=== PATIENT | female | born 1985 | race Caucasian/White ===

== ENCOUNTER → 2016-08-16 | Outpatient (CLI) | payer BC ==
[~2016-08-16] MED LIST: PEDICHW53; ZNTT/150 PO
--- NOTE | 2016-08-16 15:50 | MAMMOGRAPHY REPORT ---
ULTRASOUND OF RIGHT BREAST: 08/16/2016 CLINICAL HISTORY: The patient reports intermittent nonfocal right breast tenderness/aching for appro ximately 3-4 weeks. She had a history of right breast mastitis 4 months ago and has ceased breast-f eeding for 4 months. She also reports that her physician felt a possible lump in the right breast d uring a routine clinical exam. She denies any current breast erythema. Family history of breast can cer in her mother. COMPARISON: No prior exams were available for comparison. TECHNIQUE: Real-time ultrasound of the right breast was performed. FINDINGS: Real-time, high resolution was performed of the of the right breast including all 4 quadrants and priec bareolar region. Ultrasound was also performed of the area of the palpable lump pointed out by the patient, in the right breast at 12:00, approximately 2 cm from the nipple. Sonographically normal t issue is seen at the site of the palpable lump, without evidence of a cyst or solid mass. In the ri ght breast at 8:30, 6 cm from the nipple, there is an oval isoechoic circumscribed mass which measur es 4 x 3 x 5 mm. This is incidentally noted and may represent a fibroadenoma although is indetermin ant; the options of short interval follow-up versus biopsy were discussed with the patient, and at t his time we will opt for biopsy. The remainder of the right breast demonstrates no suspicious flash s or other suspicious sonographic abnormalities. IMPRESSION: ACR BI-RADS CATEGORY 4A: LOW SUSPICION FOR MALIGNANCY - FOLLOW-UP RECOMMENDED 1. No suspicious sonographic abnormality at the site of the palpable right 12:00 breast lump pointe d out by the patient. No etiology for right breast tenderness evident. Recommend clinical follow-u p. 2. Incidentally noted isoechoic circumscribed 5 mm mass in the right breast at 8:30. The mass may represent a fibroadenoma although is indeterminate and ultrasound guided core needle biopsy is recom mended for further evaluation. A phone call was made to the physician's office to confirm faxed results were received. The patient was verbally notified of the results. She tentatively scheduled the biopsy before leaving the depa rtment. Beatriz Cheney M.D. /:08/16/2016 13:40:24 All Around Gear Machine Operator: Beatriz Cheney MD, [facility] letter sent: Abnormal 4/5 BI-RADS Code: ACR BI-RADS Category 4A: Low Suspicion For Malignancy
== END | disposition home or self-care (01) ==
LOC: C.MAMM 13:08
PROVIDERS: ATTEND Obstetrics & Gynecology
DX: N63 Unspecified lump in breast (principal); N64.4 Mastodynia

== ENCOUNTER → 2016-08-28 | Outpatient (CLI) | payer BC ==
--- NOTE | 2016-08-28 12:05 | Discharge Instructions ---
Discharge Instructions Procedure Procedure Date: August 28, 2016. Reason for visit: Right Mass. Discharge Discharge Date: August 28, 2016. Discharge Diagnosis: post right breast ultrasound guided core biopsy Instructions Activity Recommendations: Additional Limitations (see below) Return to School/Work: no limitations Recommended Home Diet: No Limitations Provider Instructions: ACTIVITY RECOMMENDATIONS: * No lifting, pushing, pulling or exercising the affected side for three days. RETURN TO SCHOOL/WORK: * You may return to work/school after the procedure, but do not perform any strenuous activities for 24 to 48 hours. MEDICATIONS: * Tylenol (two 325 mg) every four to six hours if needed for mild pain (if not allergic to Tylenol). DIET: * Resume previous diet. SPECIAL CARE INSTRUCTIONS: * Keep biopsy site dry for 24 hours. May shower after 24 hours, but do not soak (bathe) incision. * May remove Tegaderm (plastic patch) tomorrow AFTER showering. * Leave the steri-strips on for one week. Allow the steri-strips to fall off by themselves. If not off after one week, you may remove them. You may place a Bandaid crosswise over the strips, if desired. * Apply ice 10 minutes on and 10 minutes off as needed. * Wear a bra at bedtime to sleep more comfortably for 2-3 days. * Your referring physician should have the results after approximately 5 to 7 business days. * Call for unusual bleeding, fever, drainage, etc or if you have any questions call [phone] during normal business hours or after hours call Dr Luke, . FOLLOW UP VISIT: Follow-up with Referring Physician as scheduled. Allergies Coded Allergies: No Known Allergies (Unverified , 07/29/15) Norah Bueno Recommendations: Call your doctor if: * Temperature above 101 degrees * Pain not relieved by pain medicine ordered * There is increased drainage or redness from any incision * You have any unanswered questions or concerns. Your Doctors Instructions noted above were prepared by provider Tayler Luke. Patient Signature Section: Patient Instructions Signature Page Perla Andujar Patient (or Guardian) Signature/Date: I have read and understand the instructions given to me by my caregivers. Caregiver/RN/Doctor Signature/Date: The above-named patient and/or guardian has received patient instructions on this date. + Original Patient Signature Page (only) stays with chart. Please make copy for patient.
--- NOTE | 2016-08-28 14:45 | MAMMOGRAPHY REPORT ---
ULTRASOUND GUIDED BIOPSY RIGHT BREAST: 08/28/2016 CLINICAL HISTORY: Indeterminate isoechoic 4.7 mm mass in the 8:30 right breast incidentally identifi ed on ultrasound. Patient presents for ultrasound-guided core needle biopsy. COMPARISON: Comparison is made to exam dated: 08/16/2016 ultrasound - [facility]. PATIENT CONSENT: The procedure, risks and benefits were discussed with the patient and informed writ ten consent was obtained. Specific risks to this procedure include: bleeding, infection, puncture of adjacent structure, nontarget biopsy, sampling error, metal allergy and medication reaction. PROCEDURE DESCRIPTION: A time out was performed and the right breast was agreed as the site of biops y. The skin was prepped and draped in the usual sterile fashion. The isoechoic circumscribed solid m ass in the 8:30 right breast was chosen as the target for biopsy. Subcutaneous and intraparenchymal 1% buffered lidocaine was administered as local anesthesia. A skin incision was made. Through the i ncision, 4 samples were taken with a 14 gauge Achieve biopsy device. A metallic marker was placed at the biopsy site. Hemostasis was achieved after manual compression. The patient tolerated the proced ure well and there was no immediate complication. The samples were sent to the pathology department in an appropriately labeled container. Post procedure mammography was deferred given the patient's age. IMPRESSION: ULTRASOUND GUIDED BIOPSY Status post ultrasound-guided core needle biopsy of an indeterminate isoechoic solid-appearing mass in the 8:30 right breast, with biopsy marker placed at the site. The patient will receive notification of the biopsy results from her referring physician. Tayler Luke M.D. ay/:08/28/2016 12:12:17 Rubber Tubing Splicer: Judy WALKER)([place]), [facility]
== END | disposition home or self-care (01) ==
LOC: C.MAMM 11:06
PROVIDERS: ATTEND Obstetrics & Gynecology
DX: N63 Unspecified lump in breast (principal)

== ENCOUNTER → 2017-04-10 | Outpatient (CLI) | payer BC ==
[~2017-04-10] MED LIST changes: +RANI150T85 PO; -ZNTT/150 PO
== END | disposition home or self-care (01) ==
LOC: C.PAPS 08:05
PROVIDERS: ATTEND Obstetrics & Gynecology
DX: Z01.419 Encounter for gynecological examination (general) (routine) without abnormal findings (principal)